=== PATIENT | male | born 1965 | race Two or more races ===

== ENCOUNTER 2019-05-21 02:56 | Emergency (ER) | payer SELFPAY ==
[~2019-05-21] VITALS: Ht 170.2 cm; Wt 68.0 kg
[2019-05-21] MEDS ORDERED: KEPPRA1000 MG ORAL (03:02)
[2019-05-21 03:12] VITALS: BP 109/63
--- NOTE | 2019-05-21 03:12 | NUR ---
ED Nurse Note: Patient brought in by ambulance from home d/t witnessed seizure by . Patient aao x 4 and ambulatory upon arrival. Per patient's , seizure lasted 2 months, denies head injury. Per patient, he ran out of his unknown seizure medication and was not able to take dose. Patient placed on monitor, both side rails up with seizure pads. Patient stable upon assessment. ERMD at bedside.
--- NOTE | 2019-05-21 03:13 | Emergency Room Report ---
History of Present Illness General Chief Complaint: Seizure Source: Patient Present Illness HPI This a 53-year-old male with a history of seizure. He takes Trileptal and Keppra. He presents with chief complaint of seizure. It witnessed by his he had a tonic-clonic seizure activity lasting 2 minutes. No postictal period. He does have some mild oral trauma. No incontinence of bowel or urine. He is out of his Trileptal for the last few days. He said he forgot to refill it on time. He denies any other symptoms. Denies any alcohol or drugs. Allergies: Coded Allergies: No Known Allergies (Unverified , 05/21/19) Patient History Past Medical History: see triage record, old chart reviewed, seizures Past Surgical History: none Pertinent Family History: none Social History: Denies: smoking Immunizations: other Reviewed Nursing Documentation: PMH: Agreed; PSxH: Agreed Nursing Documentation-PM Past Medical History: No Stated History Hx Seizures: Yes Review of Systems Eye: Denies: eye pain, blurred vision ENT: Denies: ear pain, nose congestion, throat swelling Respiratory: Denies: cough, shortness of breath Cardiovascular: Denies: chest pain, palpitations Gastrointestinal: Denies: abdominal pain, diarrhea, nausea, vomiting Musculoskeletal: Denies: back pain, joint pain Skin: Denies: rash Neurological: Denies: headache, numbness Endocrine: Denies: increased thirst, increased urine Hematologic/Lymphatic: Denies: easy bruising All Other Systems: negative except mentioned in HPI Physical Exam Vital Signs Date Time Temp Pulse Resp B/P (MAP) Pulse Ox O2 Delivery O2 Flow Rate FiO2 05/21/19 02:59 98.6 80 12 105/55 (72) 99 Room Air Vitals normal Sp02 EP Interpretation: reviewed, normal General Appearance: well appearing, no apparent distress, alert Head: normocephalic, atraumatic Eyes: bilateral eye PERRL, bilateral eye EOMI ENT: hearing grossly normal, normal pharynx, other - Mild abrasion to the tongue on the left lateral aspect. Neck: full range of motion, supple, no meningismus Respiratory: chest non-tender, lungs clear, normal breath sounds Cardiovascular #1: regular rate, rhythm, no murmur Gastrointestinal: normal bowel sounds, non tender, no mass, no organomegaly, no bruit, non-distended Musculoskeletal: back normal, normal range of motion, gait/station normal Psychiatric: mood/affect normal Medical Decision Making Diagnostic Impression: Primary Impression: Epileptic seizure, generalized ER Course Patient presents with a generalized seizure secondary to noncompliance with his medication. I see no need for blood work or CT scan. Patient is at baseline now. Dose of his Trileptal given here. Will discharge home. Last Vital Signs Date Time Temp Pulse Resp B/P (MAP) Pulse Ox O2 Delivery O2 Flow Rate FiO2 05/21/19 02:59 98.6 80 12 105/55 (72) 99 Room Air Status: improved Disposition: HOME, SELF-CARE Condition: Stable Patient Instructions: Seizure, Adult Additional Instructions: Fill your seizure medication. Follow-up with your doctor as scheduled. Return if worse. Delano Hahn MD May 21, 2019 03:13
[2019-05-21] MEDS ORDERED: OXcarbazepine 150mg tab ORAL ONE (03:15)
[2019-05-21 04:00] VITALS: BP 98/65
--- NOTE | 2019-05-21 04:00 | NUR ---
ER DISCHARGE NOTE: Patient is cleared to be discharged per ERMD, pt is aox4, on room air, with stable vital signs. pt was given dc instructions, pt was able to verbalize understanding, pt id band removed. pt is able to ambulate with steady gait. pt took all belongings. pt stable upon discharge.
== END 2019-05-21 04:00 | disposition home or self-care (01) ==
LOC: EDBD 02:56 → EMR 03:26
DX: G40.909 Epilepsy, unspecified, not intractable, without status epilepticus (principal)
CPT/HCPCS: 99282